=== PATIENT | female | born 1930 | race Caucasian/White ===

== ENCOUNTER 2016-12-10 14:55 | Observation (INO) | payer OTHER, MEDICAID ==
[~2016-12-10] VITALS: Ht 154.9 cm; Wt 62.7 kg
[~2016-12-10 14:55] MED LIST: ALEN70TA5 PO; AMLO1TAB67 PO; ASPI81TA50 PO; CALC-56 PO; CLON-364 PO; HYDR-3138 PO; LEVO250T23 PO; LEVO500T33 PO; LOVA40TA2 PO; RANI150C PO; RIVA10TA PO; metoprolol PO
[2016-12-10] MEDS ORDERED: SODIUM CHLORIDE FLUSH 10ML SYR IVF ONE (15:30)
[2016-12-10] MEDS ORDERED: MECLIZINE CHEWABLE 25 MG TAB PO ONE (15:30)
[2016-12-10 15:44] LABS: ASPARTATE AMINO TRANSFERASE 19 U/L (15-37); BLOOD UREA NITROGEN 20 mg/dL (7-18)
[2016-12-10 15:50] LABS: IS PT STATUS REG ER OR PRE ER? YES
[2016-12-10] MEDS ORDERED: MECLIZINE CHEWABLE 25 MG TAB ONE (16:01)
[2016-12-10 16:52] LABS: PATH.CAST-FLAG NOT PRESENT; SPERM-FLAG NOT PRESENT; SRC-FLAG NOT PRESENT; XTAL-FLAG NOT PRESENT; YLC-FLAG NOT PRESENT
[2016-12-10] MEDS ORDERED: ONDANSETRON 2MG/ML, 2ML ONE (17:29)
[2016-12-10] MEDS ORDERED: ONDANSETRON 2MG/ML, 2ML IVPush ONE (17:30)
[2016-12-10] MEDS ORDERED: HYDROcodone/APAP 5/325 TABLET PO PRN (18:30)
[2016-12-10] MEDS ORDERED: PROMETHAZINE 25 MG/ML, 1ML IM PRN (18:30)
[2016-12-10] MEDS ORDERED: hydrALAzine 20 MG/ML, 1ML IVPush PRN (18:30)
[2016-12-10] MEDS ORDERED: SODIUM CHLORIDE FLUSH 10ML SYR IVF PRN (18:30)
[2016-12-10] MEDS ORDERED: ONDANSETRON ODT 4 MG PO PRN (18:30)
[2016-12-10] MEDS ORDERED: CEFTRIAXONE PMX 2GM/50ML 50 ML IV SCH (19:30)
[2016-12-10] MEDS ORDERED: CEFTRIAXONE PMX 2GM/50ML 50 ML ONE (19:46)
[2016-12-10] MEDS: SODIUM CHLORIDE 0.9% 1,000 ML IV SCH (19:59)
[2016-12-10] MEDS ORDERED: LOVASTATIN 40 MG TABLET PO SCH (21:00)
[2016-12-10 22:00] VITALS: BP 151/70
[2016-12-11 02:30] VITALS: BP 142/66
[2016-12-11 05:35] LABS: BLOOD UREA NITROGEN 24 mg/dL (7-18)
[2016-12-11 08:36] VITALS: BP 135/80
[2016-12-11] MEDS: SODIUM CHLORIDE 0.9% 1,000 ML IV SCH (08:44)
[2016-12-11] MEDS ORDERED: AMLODIPINE 5 MG TABLET PO SCH (09:00)
[2016-12-11] MEDS ORDERED: RIVAROXABAN 10 MG TABLET PO SCH (09:00)
[2016-12-11] MEDS ORDERED: ASPIRIN 81 MG TABLET EC PO SCH (09:00)
[2016-12-11] MEDS ORDERED: VALSARTAN 320 MG TABLET PO SCH (09:00)
[2016-12-11] MEDS ORDERED: FAMOTIDINE 20 MG TABLET PO SCH (09:00)
[2016-12-11] MEDS ORDERED: CEFD300C37 PO (11:50)
[2016-12-11 14:50] VITALS: BP 162/68
[2016-12-11] MEDS ORDERED: CLON-364 PO (17:58)
== END 2016-12-11 18:30 | disposition home or self-care (01) ==
LOC: ED 18:27 → EDIP 18:28 → ED 18:39 → 3NE 20:27
PROVIDERS: ADMIT Family Medicine; ATTEND Family Medicine
DX: N39.0 Urinary tract infection, site not specified (principal); R42 Dizziness and giddiness; R51 Headache; E78.00 Pure hypercholesterolemia, unspecified; I48.2 Chronic atrial fibrillation; E78.5 Hyperlipidemia, unspecified; E11.9 Type 2 diabetes mellitus without complications; I10 Essential (primary) hypertension; I25.2 Old myocardial infarction; M81.0 Age-related osteoporosis without current pathological fracture; K21.9 Gastro-esophageal reflux disease without esophagitis; Z79.01 Long term (current) use of anticoagulants; Z86.14 Personal history of Methicillin resistant Staphylococcus aureus infection; Z87.442 Personal history of urinary calculi
CPT/HCPCS: 36415; 70450; 80048; 80053; 81001; 84484; 85025; 87077; 87086; 87186; 93005; 96361; 96365; 96375; 97162; 99285; G0378; J0696; J2405; J7030

== ENCOUNTER 2017-08-22 10:48 | Emergency (ER) | payer OTHER, MEDICAID ==
[~2017-08-22] VITALS: Ht 156.2 cm; Wt 57.0 kg
[~2017-08-22 10:48] MED LIST changes: -AMLO1TAB67 PO; +AMLO1TAB86 PO; +CEFD300C37 PO; -HYDR-3138 PO; +HYDR-3237 PO; -LEVO500T33 PO; +LEVO500T47 PO
[2017-08-22] MEDS ORDERED: GABA300C10 PO (11:12)
[2017-08-22] MEDS ORDERED: METO25TA91 PO (11:12)
[2017-08-22] MEDS ORDERED: ALEN70TA5 PO (11:12)
[2017-08-22] MEDS ORDERED: FOLI1TAB7 PO (11:12)
[2017-08-22 11:21] LABS: BASOPHILS # (AUTO) 0.07 x10^3/uL (0-0.1); BASOPHILS % (AUTO) 1 % (0-1); EOSINOPHILS # (AUTO) 0.07 x10^3/uL (0-0.4); EOSINOPHILS % (AUTO) 1 % (1-7); LYMPHOCYTES # (AUTO) 2.18 x10^3/uL (1-3.4); LYMPHOCYTES % (AUTO) 25 % (22-44); MD NO; MEAN CORPUSCULAR HEMOGLOBIN 29.4 pg (27.0-34.8); MEAN CORPUSCULAR HGB CONC 33.1 g/dL (32.4-35.8); MEAN PLATELET VOLUME 7.3 fL (7.4-10.4); MONOCYTES # (AUTO) 0.52 x10^3/uL (0.2-0.8); MONOCYTES % (AUTO) 6 % (2-9); NEUTROPHILS # (AUTO) 5.86 x10^3/uL (1.8-6.8); NEUTROPHILS % (AUTO) 67 % (42-75); PLATELET COUNT 345 x10^3/uL (130-400); RED BLOOD COUNT 5.39 x10^6/uL (3.82-5.3); RED CELL DISTRIBUTION WIDTH 13.8 % (9.6-15.2)
[2017-08-22 11:32] LABS: ANION GAP 9 mmol/L (5-15); CALCIUM 9.9 mg/dL (8.5-10.1); CHLORIDE 107 mmol/L (98-107); CREATININE 0.95 mg/dL (0.55-1.02)
[2017-08-22 12:56] VITALS: BP 143/83
== END 2017-08-22 14:32 | disposition home or self-care (01) ==
LOC: ED 11:44
DX: R51 Headache (principal); E78.00 Pure hypercholesterolemia, unspecified; I10 Essential (primary) hypertension; I48.91 Unspecified atrial fibrillation; M81.0 Age-related osteoporosis without current pathological fracture
CPT/HCPCS: 36415; 70450; 80048; 85025; 93005; 99285

== ENCOUNTER 2018-12-22 11:37 | Observation (INO) | payer MEDICAID, MEDICARE, OTHER ==
[~2018-12-22] VITALS: Ht 154.9 cm; Wt 56.0 kg
[2018-12-24 19:10] VITALS: BP 138/81
== END 2018-12-24 19:30 | disposition home or self-care (01) ==
LOC: ED 13:40 → INTOOBSV 15:01 → EDIP 15:01 → 3NE 16:03
PROVIDERS: ADMIT Family Medicine; ATTEND Family Medicine
DX: N39.0 Urinary tract infection, site not specified (principal); R51 Headache; F41.9 Anxiety disorder, unspecified; I48.91 Unspecified atrial fibrillation; I10 Essential (primary) hypertension; E78.5 Hyperlipidemia, unspecified; K21.9 Gastro-esophageal reflux disease without esophagitis; I25.10 Atherosclerotic heart disease of native coronary artery without angina pectoris; M81.0 Age-related osteoporosis without current pathological fracture; R29.6 Repeated falls; E11.9 Type 2 diabetes mellitus without complications; D32.9 Benign neoplasm of meninges, unspecified; E78.00 Pure hypercholesterolemia, unspecified; I48.2 Chronic atrial fibrillation; Z60.9 Problem related to social environment, unspecified; Z79.82 Long term (current) use of aspirin; Z79.899 Other long term (current) drug therapy; Z88.0 Allergy status to penicillin; Z88.2 Allergy status to sulfonamides; Z88.5 Allergy status to narcotic agent; Z96.649 Presence of unspecified artificial hip joint; Z96.659 Presence of unspecified artificial knee joint
CPT/HCPCS: 36415; 70450; 71045; 80048; 81001; 82040; 83880; 84443; 84484; 85025; 85520; 87077; 87086; 87186; 93005; 96365; 96372; 96375; 97162; 97166; 97530; 97535; 99284; G0378; J0696; J1650; J2405

== ENCOUNTER 2019-03-26 15:24 | Emergency (ER) | payer MEDICARE, MEDICAID ==
[~2019-03-26] VITALS: Ht 154.9 cm; Wt 119.0 kg
[~2019-03-26 15:24] MED LIST changes: -ALEN70TA5 PO; +ALEN70TA6 PO; +CENTRUM CHEWAB1 EACH PO; -CLON-364 PO; +CLON0.5T11 PO; +GABA300C10 PO; +METO25TA91 PO; -RIVA10TA PO; +RIVA10TA2 PO
--- NOTE | 2019-03-26 15:55 | NUR ---
RADHA RAO FOR GLF TODAY, NOW WITH L HIP PAIN. PT HAD FALL APPROX 1030 THIS AM, PT STATES SHE HAD NO LOC. DOES NOT KNOW WHY SHE FELL. SHE STATES SHE WAS ABLE TO WALK AFTER BUT THE PAIN BECAME PROGRESSIVELY WORSE THROUGHOUT THE DAY Addendum: 03/26/19 at 1557 by [email or web address]
--- NOTE | 2019-03-26 16:23 | NUR ---
PT REFUSING STRAIGHT CATH FOR UA SAMPLE. PROVIDER UPDATED. AWAITING RESULTS OF XR TO AMBULATE PT
[2019-03-26 16:40] LABS: BASOPHILS # (AUTO) 0.02 x10^3/uL (0-0.1); BASOPHILS % (AUTO) 0 % (0-1); EOSINOPHILS # (AUTO) 0.14 x10^3/uL (0-0.4); EOSINOPHILS % (AUTO) 2 % (1-7); LYMPHOCYTES # (AUTO) 0.85 x10^3/uL (1-3.4); LYMPHOCYTES % (AUTO) 9 % (22-44); MD NO; MEAN CORPUSCULAR HEMOGLOBIN 30.4 pg (27.0-34.8); MEAN CORPUSCULAR VOLUME 91.9 fL (80-100); MEAN PLATELET VOLUME 7.1 fL (7.4-10.4); MONOCYTES # (AUTO) 0.65 x10^3/uL (0.2-0.8); MONOCYTES % (AUTO) 7 % (2-9); NEUTROPHILS # (AUTO) 7.74 x10^3/uL (1.8-6.8); NEUTROPHILS % (AUTO) 82 % (42-75); PLATELET COUNT 302 x10^3/uL (130-400); RED BLOOD COUNT 4.64 x10^6/uL (3.82-5.3); RED CELL DISTRIBUTION WIDTH 13.9 % (9.6-15.2)
[2019-03-26 16:50] LABS: ALANINE AMINOTRANSFERASE 19 U/L (12-78); ALBUMIN 3.6 g/dL (3.4-5.0); ANION GAP 7 mmol/L (5-15); CALCIUM 9.5 mg/dL (8.5-10.1); CHLORIDE 110 mmol/L (98-107)
[2019-03-26 16:52] LABS: ALKALINE PHOSPHATASE 96 U/L (45-117); BILIRUBIN,TOTAL 0.6 mg/dL (0.2-1.0); CREATININE 0.83 mg/dL (0.55-1.02); TOTAL PROTEIN 7.1 g/dL (6.4-8.2)
[2019-03-26 17:00] VITALS: BP 123/75
--- NOTE | 2019-03-26 17:06 | NUR ---
PT AMBULATED WITH FWW TO BR, UA COLLECTED AND SENT. PT SLOW AND SHUFFLING WITH FWW, DISCUSSED WITH PROVIDER. PLAN IS TO DC PT HOME. SON CALLED AND UPDATED (NORMA [phone])
[2019-03-26 17:24] LABS: CULTURE INDICATED? YES; MICROSCOPIC INDICATED
[2019-03-26] MEDS ORDERED: IBUPROFEN 600 MG TABLET ONE (17:55)
[2019-03-26] MEDS ORDERED: NITROFURANTOIN (MACROBID) 100 MG CAPSULE ONE (17:55)
[2019-03-26] MEDS ORDERED: IBUPROFEN 200 MG TABLET PO ONE (18:00)
[2019-03-26] MEDS ORDERED: NITROFURANTOIN (MACROBID) 100 MG CAPSULE PO ONE (18:00)
--- NOTE | 2019-03-26 18:03 | NUR ---
Patient/Caregiver given discharge instructions and they have confirmed that they understand the instructions. Patient IN WHEELCHAIR, PT IN CARE OF SON
== END 2019-03-26 18:13 | disposition home or self-care (01) ==
LOC: ED 18:00
DX: S70.02XA Contusion of left hip, initial encounter (principal); N30.00 Acute cystitis without hematuria; I10 Essential (primary) hypertension; I48.91 Unspecified atrial fibrillation; E78.00 Pure hypercholesterolemia, unspecified; Z96.641 Presence of right artificial hip joint; W18.30XA Fall on same level, unspecified, initial encounter; Y93.89 Activity, other specified; Y92.009 Unspecified place in unspecified non-institutional (private) residence as the place of occurrence of the external cause; Y99.8 Other external cause status
CPT/HCPCS: 36415; 80053; 81001; 85025; 87077; 87086; 87186; 99284

== ENCOUNTER 2019-03-30 10:55 | Observation (INO) | payer MEDICAID, MEDICARE ==
[~2019-03-30] VITALS: Ht 154.9 cm; Wt 52.9 kg
--- NOTE | 2019-03-30 11:15 | NUR ---
Patient from triage with son. Reports GLF on Sunday and no with increased pain on the left leg. Reports she is unable to walk and in "lots of pain" Resting on gurney. Hilario-son [phone]. Patient wants son to be notifed of changes. Patient gives verbal consent.
[2019-03-30] MEDS ORDERED: ONDANSETRON ODT 4 MG ONE (11:26)
[2019-03-30] MEDS ORDERED: HYDROcodone/APAP 5/325 TABLET ONE (11:26)
[2019-03-30] MEDS ORDERED: HYDROcodone/APAP 5/325 TABLET PO ONE (11:30)
[2019-03-30] MEDS ORDERED: SODIUM CHLORIDE FLUSH 10ML SYR IVF ONE (11:30)
[2019-03-30] MEDS ORDERED: ONDANSETRON ODT 4 MG PO ONE (11:30)
[2019-03-30 11:46] LABS: MEAN CORPUSCULAR HEMOGLOBIN 30.1 pg (27.0-34.8); MEAN CORPUSCULAR HGB CONC 32.4 g/dL (32.4-35.8); MEAN CORPUSCULAR VOLUME 92.9 fL (80-100); MEAN PLATELET VOLUME 7.4 fL (7.4-10.4); PLATELET COUNT 306 x10^3/uL (130-400); RED BLOOD COUNT 4.62 x10^6/uL (3.82-5.3); RED CELL DISTRIBUTION WIDTH 14.1 % (9.6-15.2)
[2019-03-30 11:49] LABS: ALANINE AMINOTRANSFERASE 17 U/L (12-78); ALBUMIN 3.6 g/dL (3.4-5.0); ANION GAP 6 mmol/L (5-15); CALCIUM 9.2 mg/dL (8.5-10.1); CHLORIDE 109 mmol/L (98-107); CREATININE 0.85 mg/dL (0.55-1.02)
--- NOTE | 2019-03-30 11:50 | NUR ---
REPORT RECEIVED FROM MARIBEL GONZALEZ. PT CARE ASSUMED. PT RESTING COMFORTABLY ON GURNEY, ROOM AIR, VSS, CALL LIGHT WITHIN REACH. PT VERY [place]. XRAY AT BEDSIDE TO TAKE PT FOR TEST.
[2019-03-30 11:52] LABS: ALKALINE PHOSPHATASE 92 U/L (45-117); BILIRUBIN,TOTAL 0.7 mg/dL (0.2-1.0); TOTAL PROTEIN 7.2 g/dL (6.4-8.2)
--- NOTE | 2019-03-30 11:52 | NUR ---
MED REC COMPLETED BY THIS RN.
[2019-03-30 12:20] LABS: BASOPHILS # (AUTO) 0.03 x10^3/uL (0-0.1); BASOPHILS % (AUTO) 1 % (0-1); EOSINOPHILS # (AUTO) 0.11 x10^3/uL (0-0.4); EOSINOPHILS % (AUTO) 2 % (1-7); LYMPHOCYTES # (AUTO) 0.86 x10^3/uL (1-3.4); LYMPHOCYTES % (AUTO) 15 % (22-44); MD SCAN; MONOCYTES # (AUTO) 0.53 x10^3/uL (0.2-0.8); MONOCYTES % (AUTO) 9 % (2-9); NEUTROPHILS # (AUTO) 4.34 x10^3/uL (1.8-6.8); NEUTROPHILS % (AUTO) 74 % (42-75)
--- NOTE | 2019-03-30 12:40 | NUR ---
PT ASSISTED ON AND OFF BEDPAN. PIV ESTABLISHED BY THIS RN.
--- NOTE | 2019-03-30 12:42 | NUR ---
MD TO BEDSIDE TO DISCUSS POC. ALL RESULTS BACK AT THIS TIME, PLAN FOR ADMISSION.
--- NOTE | 2019-03-30 12:49 | NUR ---
dr morel spoke with clementine
[2019-03-30] MEDS ORDERED: SODIUM CHLORIDE FLUSH 10ML SYR IVF PRN (13:00)
--- NOTE | 2019-03-30 13:23 | NUR ---
REPORT GIVEN TO MARIBEL WIGGINS. PT TO TRANSFER WITH ALL BELONGINGS TO INPATIENT STATUS.
--- NOTE | 2019-03-30 13:45 | NUR ---
PT GIVEN LUNCH TRAY PER REQUEST, 75% OF TRAY CONSUMED. PT READY TO TRANSFER UPSTAIRS.
[2019-03-30 14:20] VITALS: BP 135/71
[2019-03-30] MEDS ORDERED: ACETAMINOPHEN 325 MG TABLET PO PRN (16:00)
[2019-03-30] MEDS ORDERED: OXYcodone/APAP 5/325MG TABLET PO PRN (16:00)
[2019-03-30] MEDS: POTASSIUM CHLORIDE 20 MEQ TAB.ER.PRT PO SCH (17:42)
[2019-03-30 18:43] VITALS: BP 117/62
[2019-03-30] MEDS: LOVASTATIN 40 MG TABLET PO SCH (20:24)
[2019-03-30 20:29] VITALS: BP 133/77
[2019-03-30] MEDS ORDERED: CEFDINIR 300 MG CAPSULE PO SCH (21:00)
[2019-03-31] MEDS: METOPROLOL SUCCINATE 25 MG TAB.ER.24H PO SCH (01:00)
[2019-03-31 01:20] VITALS: BP 141/70
[2019-03-31 05:15] LABS: ANION GAP 4 mmol/L (5-15); CALCIUM 8.5 mg/dL (8.5-10.1); CHLORIDE 109 mmol/L (98-107); CREATININE 0.71 mg/dL (0.55-1.02)
[2019-03-31 07:37] VITALS: BP 136/73
[2019-03-31] MEDS: AMLODIPINE 10 MG TAB PO SCH (08:47)
[2019-03-31] MEDS: CALCIUM/VITAMIN D3 250-125 TABLET PO SCH (08:47)
[2019-03-31] MEDS: MULTIVITAMIN 1 TABLET PO SCH (08:48)
[2019-03-31] MEDS: LOSARTAN 50MG TABLET PO SCH (08:48)
[2019-03-31] MEDS: ASPIRIN 81 MG TABLET EC PO SCH (08:49)
[2019-03-31] MEDS ORDERED: FAMOTIDINE 40 MG TABLET PO SCH (09:00)
[2019-03-31] MEDS: ENOXAPARIN 40 MG/0.4 ML SQ SCH (10:43)
[2019-03-31 12:41] VITALS: BP 127/68
[2019-03-31] MEDS: POTASSIUM CHLORIDE 20 MEQ TAB.ER.PRT PO SCH (16:53)
[2019-03-31 19:45] VITALS: BP 127/78
[2019-03-31] MEDS: LOVASTATIN 40 MG TABLET PO SCH (20:03)
[2019-04-01 01:29] VITALS: BP 120/67
[2019-04-01 08:02] VITALS: BP 149/79
[2019-04-01] MEDS: ASPIRIN 81 MG TABLET EC PO SCH (08:03)
[2019-04-01] MEDS: MULTIVITAMIN 1 TABLET PO SCH (08:03)
[2019-04-01] MEDS: AMLODIPINE 10 MG TAB PO SCH (08:03)
[2019-04-01] MEDS: ENOXAPARIN 40 MG/0.4 ML SQ SCH (08:03)
[2019-04-01] MEDS: LOSARTAN 50MG TABLET PO SCH (08:04)
[2019-04-01] MEDS: METOPROLOL SUCCINATE 25 MG TAB.ER.24H PO SCH ×2 (08:04→08:14)
[2019-04-01] MEDS: CALCIUM/VITAMIN D3 250-125 TABLET PO SCH (08:04)
[2019-04-01] MEDS ORDERED: FAMOTIDINE 20 MG TABLET PO SCH (09:00)
[2019-04-01] MEDS ORDERED: POLYETHYLENE GLYCOL 17 GM PACKET NG PRN (12:00)
[2019-04-01] MEDS ORDERED: SENNA/DOCUSATE TABLET PO PRN (12:00)
[2019-04-01 12:36] VITALS: BP 130/66
== END 2019-04-01 14:45 | disposition home or self-care (01) ==
LOC: ED 11:25 → EDIP 13:16 → INTOOBSV 13:16 → 3N 14:22 → 4EST 21:02 → DCLOUNGE 04-01 14:33
PROVIDERS: ADMIT Family Medicine; ATTEND Family Medicine
DX: M25.552 Pain in left hip (principal); E11.9 Type 2 diabetes mellitus without complications; E78.00 Pure hypercholesterolemia, unspecified; I48.20 Chronic atrial fibrillation, unspecified; I10 Essential (primary) hypertension; M81.0 Age-related osteoporosis without current pathological fracture; M51.16 Intervertebral disc disorders with radiculopathy, lumbar region; N39.0 Urinary tract infection, site not specified; E87.6 Hypokalemia; R54 Age-related physical debility; R29.6 Repeated falls; Z88.0 Allergy status to penicillin; Z88.5 Allergy status to narcotic agent; Z88.2 Allergy status to sulfonamides
CPT/HCPCS: 36415; 71045; 72110; 73523; 80048; 80053; 83735; 84484; 85025; 93005; 96372; 97162; 97166; 99284; G0378; J1650; Q0162; 99285

== ENCOUNTER 2019-09-05 13:28 | Emergency (ER) | payer MEDICARE, MEDICAID ==
[~2019-09-05] VITALS: Ht 170.2 cm; Wt 81.8 kg
[~2019-09-05 13:28] MED LIST changes: +CLON-364 PO; -CLON0.5T11 PO
--- NOTE | 2019-09-05 13:50 | NUR ---
PT TO ROOM 12 PER JALEN. PT WAS AT HOME, AND WHEN SHE WENT TO THE BR TODAY, SHE MISSED THE POT (AGAIN), AND FELL STRIKING RIGHT HAND, SHOULDER AND FOREHEAD. PT HAS SWELLING IN THE RIGHT HAND (ICE APPLIED), RIGHT SHOULDER AND GOOSE EGG ON FRONT OF HEAD IN THE FOREHEAD POSITION. 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 PT IS A/O X3, AND IS WEAK BUT CAN MOVE ALL EXTREMITIES.
[2019-09-05] MEDS ORDERED: SODIUM CHLORIDE FLUSH 10ML SYR IVF ONE (14:00)
[2019-09-05 14:19] LABS: BASOPHILS # (AUTO) 0.03 x10^3/uL (0-0.1); BASOPHILS % (AUTO) 0 % (0-1); EOSINOPHILS # (AUTO) 0.08 x10^3/uL (0-0.4); EOSINOPHILS % (AUTO) 1 % (1-7); LYMPHOCYTES # (AUTO) 0.71 x10^3/uL (1-3.4); LYMPHOCYTES % (AUTO) 7 % (22-44); MD NO; MEAN CORPUSCULAR HGB CONC 32.8 g/dL (32.4-35.8); MEAN CORPUSCULAR VOLUME 88.4 fL (80-100); MEAN PLATELET VOLUME 7.1 fL (7.4-10.4); MONOCYTES % (AUTO) 6 % (2-9); NEUTROPHILS # (AUTO) 9.51 x10^3/uL (1.8-6.8); NEUTROPHILS % (AUTO) 87 % (42-75); PLATELET COUNT 331 x10^3/uL (130-400); RED BLOOD COUNT 4.84 x10^6/uL (3.82-5.3)
[2019-09-05 14:29] LABS: INTERNATIONAL NORMALIZED RATIO 1.04 (0.93-1.1)
[2019-09-05 14:32] LABS: ALANINE AMINOTRANSFERASE 18 U/L (12-78); ALBUMIN 3.9 g/dL (3.4-5.0); ANION GAP 6 mmol/L (5-15); CALCIUM 9.6 mg/dL (8.5-10.1); CHLORIDE 109 mmol/L (98-107); CREATININE 0.85 mg/dL (0.55-1.02)
[2019-09-05 14:34] LABS: ALKALINE PHOSPHATASE 90 U/L (45-117); TOTAL PROTEIN 7.7 g/dL (6.4-8.2)
--- NOTE | 2019-09-05 14:52 | NUR ---
PT TO XRAY, AND UPON RETURN PLACED ON BEDPAN. PT HAS GOOD MOVEMENT OF BILATERAL HIPS TO RAISE OFF BED. URINE SAMPLE OBTAINED AND SENT FOR TESTING. PT NOW GOING TO CT.
--- NOTE | 2019-09-05 15:30 | NUR ---
PT AMBULATED IN ROOM TO ASSESS FOR DISCHARGE. PT AMBULATES WITH STEADY GAIT WITH STAND BY ASSIST. PT SAYS SHE USES A WALKER AT HOME. NOTIFIED.
[2019-09-05 16:30] VITALS: BP 154/74
--- NOTE | 2019-09-05 16:38 | NUR ---
SON CONTACTED FOR DISCHARGE SET UP MOLD TECHNICIAN. NORMA WILL BE COMING TO SET UP MOLD TECHNICIAN PATIENT. PT GIVEN DISCHARGE INSTRUCTIONS. PT VERBALIZES UNDERSTANDING OF INSTRUCTIONS AND FOLLOW UP. PT UP TO WHEELCHAIR FOR DISCHARGE. RN STOPS AT BR FOR PATIENT. STAND BY ASSIST ONLY. PT TO WAITING ROOM TO KEEP WATCH FOR HER SON.
== END 2019-09-05 16:43 | disposition home or self-care (01) ==
LOC: ED 13:54
DX: S40.011A Contusion of right shoulder, initial encounter (principal); S60.221A Contusion of right hand, initial encounter; S70.02XA Contusion of left hip, initial encounter; I48.91 Unspecified atrial fibrillation; I10 Essential (primary) hypertension; E78.00 Pure hypercholesterolemia, unspecified; Z96.649 Presence of unspecified artificial hip joint; W01.0XXA Fall on same level from slipping, tripping and stumbling without subsequent striking against object, initial encounter; Y93.89 Activity, other specified; Y92.009 Unspecified place in unspecified non-institutional (private) residence as the place of occurrence of the external cause; Y99.8 Other external cause status
CPT/HCPCS: 36415; 70450; 80053; 85025; 85610; 99285

== ENCOUNTER 2019-10-10 12:12 | Emergency (ER) | payer MEDICARE, MEDICAID ==
[~2019-10-10] VITALS: Ht 154.9 cm; Wt 59.0 kg
--- NOTE | 2019-10-10 13:16 | NUR ---
Patient had a GLF at [facility] and is now having right foot, calf swelling and pain. patient now in bed in gown with cont spo2, bp q 30 min. went over POC, agrees to plan. Call light in reach.
--- NOTE | 2019-10-10 14:45 | NUR ---
PT UNABLE TO WALK OR PUT WEIGHT ON RIGHT FOOT. PT USES WALKER. COULD NOT WALK TO RESTROOM. PT REPORTS THAT HER SON HELPS HER IN THE MORNING AND NIGHT AND IS GONE DURING THE DAY. DOES NOT HAVE SON'S NUMBER. NOTIFIED ABOUT SAFE DISCHARGE CONSERNS.
--- NOTE | 2019-10-10 15:01 | NUR ---
CALLED THOR VELEZ DAUGHTER POA ([phone]) FOR UPDATE. CALLED SON NORMA SON ([phone])
[2019-10-10 15:16] LABS: BASOPHILS # (AUTO) 0.02 x10^3/uL (0-0.1); BASOPHILS % (AUTO) 0 % (0-1); EOSINOPHILS # (AUTO) 0.05 x10^3/uL (0-0.4); EOSINOPHILS % (AUTO) 1 % (1-7); LYMPHOCYTES # (AUTO) 1.22 x10^3/uL (1-3.4); LYMPHOCYTES % (AUTO) 17 % (22-44); MD NO; MEAN CORPUSCULAR HGB CONC 32.7 g/dL (32.4-35.8); MEAN CORPUSCULAR VOLUME 88.8 fL (80-100); MONOCYTES # (AUTO) 0.76 x10^3/uL (0.2-0.8); MONOCYTES % (AUTO) 10 % (2-9); NEUTROPHILS # (AUTO) 5.24 x10^3/uL (1.8-6.8); NEUTROPHILS % (AUTO) 72 % (42-75); PLATELET COUNT 343 x10^3/uL (130-400); RED BLOOD COUNT 4.59 x10^6/uL (3.82-5.3); RED CELL DISTRIBUTION WIDTH 15.9 % (9.6-15.2)
[2019-10-10 15:22] LABS: ALBUMIN 3.6 g/dL (3.4-5.0); ANION GAP 7 mmol/L (5-15); CALCIUM 9.3 mg/dL (8.5-10.1); CHLORIDE 109 mmol/L (98-107)
[2019-10-10 15:26] LABS: ALANINE AMINOTRANSFERASE 15 U/L (12-78); ALKALINE PHOSPHATASE 97 U/L (45-117); CREATININE 0.82 mg/dL (0.55-1.02); TOTAL PROTEIN 7.4 g/dL (6.4-8.2)
[2019-10-10 18:08] VITALS: BP 134/65
== END 2019-10-10 18:10 | disposition home or self-care (01) ==
LOC: ED 14:55 → MERGE 14:55 → ED 18:10
DX: S93.411A Sprain of calcaneofibular ligament of right ankle, initial encounter (principal); S93.611A Sprain of tarsal ligament of right foot, initial encounter; M25.561 Pain in right knee; I48.91 Unspecified atrial fibrillation; W18.30XA Fall on same level, unspecified, initial encounter; Y93.89 Activity, other specified; Y92.410 Unspecified street and highway as the place of occurrence of the external cause; Y99.8 Other external cause status
CPT/HCPCS: 36415; 71045; 80053; 85025; 93005; 99285